=== PATIENT | male | born 1960 | race Caucasian/White ===

== ENCOUNTER 2017-02-14 14:48 | Inpatient (IN) | payer MEDICAID, OTHER ==
[~2017-02-14] VITALS: Ht 160 cm; Wt 57.2 kg
[~2017-02-14 14:48] MED LIST: LAMO25 PO; QUET50TA PO
[2017-02-14] MEDS ORDERED: LITH300C3 PO (14:58)
[2017-02-14] MEDS ORDERED: RIT5 PO (14:58)
[2017-02-14] MEDS ORDERED: PERM60CR4 TP (14:58)
[2017-02-14 15:31] LABS: BASOPHILS % (AUTO) 0.5 % (0.0-2.0); EOSINOPHILS % (AUTO) 3.6 % (1.0-6.0); HEMATOCRIT 46.8 % (41-53); HEMOGLOBIN 15.7 g/dL (13.5-17.5); LYMPHOCYTES # (AUTO) 3.3 K/uL (1.0-4.8); LYMPHOCYTES % (AUTO) 26.4 % (22.0-44.0); MEAN CORPUSCULAR HEMOGLOBIN 30.8 pg (26.0-34.0); MEAN CORPUSCULAR HGB CONC 33.6 G/dL (31.0-37.0); MEAN CORPUSCULAR VOLUME 91 fL (80-100); MONOCYTES # (AUTO) 0.6 K/uL (0.1-1.0); MONOCYTES % (AUTO) 4.6 % (2.0-9.0); NEUTROPHILS # (AUTO) 8.2 K/uL (1.8-7.7); NEUTROPHILS % (AUTO) 64.9 % (40.0-70.0); PLATELET COUNT (AUTO) 308 K/uL (150-450); RED BLOOD CELL COUNT(AUTO) 5.12 MIL/uL (4.50-5.90); RED CELL DISTRIBUTION WIDTH 14.1 % (11.5-14.5); WHITE BLOOD COUNT (AUTO) 12.6 K/uL (4.5-11.0)
[2017-02-14 15:34] LABS: ANION GAP 7 mmol/L (8-16); CALCIUM, TOTAL 8.9 mg/dL (8.8-10.5); CARBON DIOXIDE 29 mmol/L (22-29); CHLORIDE 106 mmol/L (98-107); CREATININE 1.01 mg/dL (0.60-1.30); GLOMERULAR FILTR. RATE CALC > 60 mL/min (>60); SODIUM SERUM 142 mmol/L (136-145); UREA NITROGEN, BLOOD 14 mg/dL (7-18)
[2017-02-14 15:41] LABS: ALANINE AMINOTRANSFERASE 27 U/L (12-78); ASPARTATE AMINOTRANSFERASE 21 U/L (15-37); BILIRUBIN,TOTAL 0.2 mg/dL (0.1-1.0); TOTAL PROTEIN, SERUM 7.6 g/dL (6.4-8.2)
[2017-02-14 16:02] LABS: LITHIUM < 0.20 mmol/L (0.60-1.20)
[2017-02-14] MEDS ORDERED: LORazepam 2 MG TABLET PO ONE (18:00)
[2017-02-14] MEDS ORDERED: LORazepam 2 MG TABLET PO PRN (18:45)
[2017-02-14] MEDS ORDERED: ZOLPIDEM TARTRATE 10 MG TABLET PO PRN (18:45)
[2017-02-14] MEDS ORDERED: HALOPERIDOL 5 MG TABLET PO PRN (18:45)
[2017-02-14 19:27] LABS: CHOL/HDL RATIO 4.5 (4.2-7.3)
[2017-02-14] MEDS: LITHIUM CARBONATE 300 MG CAPSULE PO SCH (20:47)
[2017-02-14 21:12] VITALS: BP 140/87
[2017-02-14] MEDS ORDERED: INFLUENZA VIRUS VACCINE QVS 2017-18 (3YR+)/PF 60 MCG/0.5 ML SYRINGE IM ONE (21:30)
[2017-02-15 06:43] VITALS: BP 137/67
[2017-02-15 08:35] VITALS: BP 120/77
[2017-02-15] MEDS ORDERED: IBUPROFEN 400 MG TABLET PO PRN (14:30)
[2017-02-15] MEDS ORDERED: ACETAMINOPHEN 325 MG TABLET PO PRN (14:30)
[2017-02-15] MEDS ORDERED: PERMETHRIN 5% 60 GM CREAM TP ONE (15:15)
[2017-02-15 16:28] VITALS: BP 145/86
[2017-02-15] MEDS: BACITRACIN 28.4 GM OINTMENT TP SCH (16:46)
[2017-02-15] MEDS: LITHIUM CARBONATE 300 MG CAPSULE PO SCH (20:18)
[2017-02-16 07:17] VITALS: BP 138/82
[2017-02-16] MEDS ORDERED: LITH600 PO (08:27)
[2017-02-16 08:37] VITALS: BP 130/80
[2017-02-16 08:42] LABS: BASOPHILS % (AUTO) 0.5 % (0.0-2.0); EOSINOPHILS % (AUTO) 4.3 % (1.0-6.0); HEMATOCRIT 50.5 % (41-53); HEMOGLOBIN 16.7 g/dL (13.5-17.5); LYMPHOCYTES # (AUTO) 3.3 K/uL (1.0-4.8); LYMPHOCYTES % (AUTO) 22.4 % (22.0-44.0); MEAN CORPUSCULAR HEMOGLOBIN 30.7 pg (26.0-34.0); MEAN CORPUSCULAR HGB CONC 33.1 G/dL (31.0-37.0); MEAN CORPUSCULAR VOLUME 93 fL (80-100); MONOCYTES # (AUTO) 0.7 K/uL (0.1-1.0); MONOCYTES % (AUTO) 4.8 % (2.0-9.0); NEUTROPHILS # (AUTO) 9.9 K/uL (1.8-7.7); PLATELET COUNT (AUTO) 310 K/uL (150-450); RED BLOOD CELL COUNT(AUTO) 5.45 MIL/uL (4.50-5.90); RED CELL DISTRIBUTION WIDTH 14.3 % (11.5-14.5); WHITE BLOOD COUNT (AUTO) 14.6 K/uL (4.5-11.0)
[2017-02-16] MEDS: BACITRACIN 28.4 GM OINTMENT TP SCH (09:03)
== END 2017-02-16 10:51 | disposition home or self-care (01) | DRG 753 ==
LOC: EMS 14:49 → EEVIPCON 14:49 → B2S 19:37
PROVIDERS: ADMIT Psychiatry & Neurology Psychiatry; ATTEND Psychiatry & Neurology Psychiatry
DX: F31.9 Bipolar disorder, unspecified (principal); I10 Essential (primary) hypertension; E78.5 Hyperlipidemia, unspecified; D72.829 Elevated white blood cell count, unspecified; F12.90 Cannabis use, unspecified, uncomplicated; F17.210 Nicotine dependence, cigarettes, uncomplicated; F19.10 Other psychoactive substance abuse, uncomplicated; F41.9 Anxiety disorder, unspecified; Z79.899 Other long term (current) drug therapy
CPT/HCPCS: 90471; 99285; 99406; G0480